=== PATIENT | female | born 1940 | race Caucasian/White ===

== ENCOUNTER → 2024-12-25 12:01 | Outpatient (REF) | payer MEDICARE, BC, SELFPAY | LOC: HWWDC 12:01 | PROVIDERS: ATTENDING PHYSICIAN Family Medicine | DX: Z12.31 Encounter for screening mammogram for malignant neoplasm of breast (principal) | CPT/HCPCS: 77063; 77067 ==

== ENCOUNTER → 2025-08-19 13:15 | Outpatient (REF) | payer MEDICARE, BC, SELFPAY | LOC: HWRAD 13:15 | PROVIDERS: ATTENDING PHYSICIAN Family Medicine; REFERRING PHYSICIAN Internal Medicine Endocrinology, Diabetes & Metabolism | DX: Z78.0 Asymptomatic menopausal state (principal) | CPT/HCPCS: 77080 ==